=== PATIENT | male | born 1990 | race Caucasian/White ===

== ENCOUNTER 2021-11-29 13:32 | Emergency (ER) | payer OTHER, SELFPAY ==
[2021-11-29] MEDS ORDERED: Morphine 4 MG/ML VIAL ONE (14:17)
== END 2021-11-29 15:09 | disposition home or self-care (01) ==
LOC: MADERS 13:32
DX: M51.17 Intervertebral disc disorders with radiculopathy, lumbosacral region (principal); R20.2 Paresthesia of skin; F17.210 Nicotine dependence, cigarettes, uncomplicated; W01.0XXA Fall on same level from slipping, tripping and stumbling without subsequent striking against object, initial encounter; Y93.01 Activity, walking, marching and hiking; Y92.69 Other specified industrial and construction area as the place of occurrence of the external cause
CPT/HCPCS: 72131; J2270